=== PATIENT | female | born 1980 | race African-American/Black ===

== ENCOUNTER 2018-02-10 07:13 | Emergency (ER) | payer MEDICAID ==
[~2018-02-10] VITALS: Ht 167.6 cm; Wt 82.0 kg
[2018-02-10] MEDS ORDERED: IBUPROFEN 600MG TABLET PO ONE (08:45)
[2018-02-10 08:49] VITALS: BP 132/78
[2018-02-10] MEDS ORDERED: DEXAMETHASONE 4MG/ML 1ML VIAL IM ONE (10:45)
== END 2018-02-10 11:00 | disposition home or self-care (01) ==
LOC: ER 08:13
DX: S39.012A Strain of muscle, fascia and tendon of lower back, initial encounter (principal); S16.1XXA Strain of muscle, fascia and tendon at neck level, initial encounter; Z88.0 Allergy status to penicillin; V43.52XA Car driver injured in collision with other type car in traffic accident, initial encounter; Y93.89 Activity, other specified; Y92.488 Other paved roadways as the place of occurrence of the external cause
CPT/HCPCS: 72040; 72100; 81025; 96372; 99283; J1100